=== PATIENT | male | born 1970 | race Caucasian/White ===

== ENCOUNTER 2018-05-29 11:53 | Emergency (ER) | payer OTHER ==
--- NOTE | 2018-05-29 13:50 | EDM.PDOCBH ---
ED HPI GENERAL MEDICAL PROBLEM - General Chief Complaint: Drug or Alcohol Abuse Stated Complaint: MEDICAL CLEARANCE FOR KULWANT JOSEPH Time Seen by Provider: 05/29/18 12:50 Source of Information: Reports: Patient History Limitations: Reports: No Limitations - History of Present Illness INITIAL COMMENTS - FREE TEXT/NARRATIVE: pt arrived with a history of uncontrolled drinking since the 22 of May. He has a long history of etoh problems. He was doing well but this summer has been a problem. 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 He drank a pint of vodka this am. Duration: Day(s):, Getting Worse Location: Reports: Generalized Associated Symptoms: Reports: No Other Symptoms - Related Data Allergies Allergy/AdvReac Type Severity Reaction Status Date / Time No Known Allergies Allergy Verified 05/29/18 12:52 Home Meds: Home Meds PARoxetine [Paxil] 20 mg PO DAILY 05/29/18 [History] Past Medical History - Past Health History Medical/Surgical History: Denies Medical/Surgical History Psychiatric History: Reports: Anxiety, Depression Social & Family History - Tobacco Use Smoking Status *Q: Never Smoker - Alcohol Use Days Per Week of Alcohol Use: 7 Number of Drinks Per Day: 5 Total Drinks Per Week: 35 - Recreational Drug Use Recreational Drug Use: No ED ROS GENERAL - Review of Systems Review Of Systems: See Below Constitutional: Reports: No Symptoms HEENT: Reports: No Symptoms Respiratory: Reports: No Symptoms Cardiovascular: Reports: No Symptoms Endocrine: Reports: No Symptoms GI/Abdominal: Reports: No Symptoms : Reports: No Symptoms Musculoskeletal: Reports: No Symptoms Skin: Reports: No Symptoms Neurological: Reports: Other (pt was very shaking this am and he did drink at that time. ) ED EXAM, BEHAVIORAL HEALTH - Physical Exam Exam: See Below Text/Narrative:: pt arrived with increased shakiness and feeling like his etoh use is out of control. Exam Limited By: No Limitations General Appearance: Alert, Anxious, Mild Distress Ears: Normal TMs Nose: Normal Inspection Throat/Mouth: Normal Inspection Head: Atraumatic Neck: Normal Inspection Respiratory/Chest: No Respiratory Distress Cardiovascular: Regular Rate, Rhythm GI/Abdominal: Soft, Non-Tender (Male) Exam: Deferred Rectal (Males) Exam: Deferred Back Exam: Normal Inspection Extremities: Normal Inspection Neurological: Alert, Normal Cognition COURSE, BEHAVIORAL HEALTH COMP - Course Vital Signs: Last Vital Signs Temp 36 C 05/29/18 12:45 Pulse 99 05/29/18 12:45 Resp 14 05/29/18 12:45 BP 144/101 H 05/29/18 12:45 Pulse Ox 94 L 05/29/18 12:45 Orders, Labs, Meds: Active Orders 24 hr Category Date Time Status DRUG SCREEN, URINE [URCHEM] Stat Lab 05/29/18 12:46 Ordered UA W/MICROSCOPIC [URIN] Urgent Lab 05/29/18 12:46 Ordered Laboratory Tests 05/29/18 05/29/18 05/29/18 Range/Units 12:46 13:04 13:04 WBC 7.5 (4.5-11.0) K/uL RBC 4.64 (4.30-5.90) M/uL Hgb 14.6 (12.0-15.0) g/dL Hct 42.2 (40.0-54.0) % MCV 91 (80-98) fL MCH 32 H (27-31) pg MCHC 35 (32-36) % Plt Count 191 (150-400) K/uL Neut % (Auto) 82 H (36-66) % Lymph % (Auto) 9 L (24-44) % [place] % (Auto) 9 H (2-6) % Eos % (Auto) 0 L (2-4) % Baso % (Auto) 0 (0-1) % Sodium 138 L (140-148) mmol/L Potassium 3.4 L (3.6-5.2) mmol/L Chloride 101 (100-108) mmol/L Carbon Dioxide 25 (21-32) mmol/L Anion Gap 15.4 H (5.0-14.0) mmol/L BUN 12 (7-18) mg/dL Creatinine 1.1 (0.8-1.3) mg/dL Est Cr Clr Drug Dosing 92.10 mL/min Estimated GFR (MDRD) > 60 (>60) Glucose 108 H (74-106) mg/dL Calcium 8.2 L (8.5-10.1) mg/dL Total Bilirubin 0.7 (0.2-1.0) mg/dL AST 133 H (15-37) U/L ALT 113 H (12-78) U/L Alkaline Phosphatase 104 (46-116) U/L Total Protein 6.1 L (6.4-8.2) g/dL Albumin 3.0 L (3.4-5.0) g/dL Globulin 3.1 (2.3-3.5) g/dL Albumin/Globulin Ratio 1.0 L (1.2-2.2) Urine Opiates Screen Negative (NEGATIVE) Ur Oxycodone Screen Negative (NEGATIVE) Urine Methadone Screen Negative (NEGATIVE) Ur Propoxyphene Screen Negative (NEGATIVE) Ur Barbiturates Screen Negative (NEGATIVE) Ur Tricyclics Screen Negative (NEGATIVE) Ur Phencyclidine Scrn Negative (NEGATIVE) Ur Amphetamine Screen Negative (NEGATIVE) U Methamphetamines Scrn Negative (NEGATIVE) Urine MDMA Screen Negative (NEGATIVE) U Benzodiazepines Scrn Negative (NEGATIVE) U Cocaine Metab Screen Negative (NEGATIVE) U Marijuana (THC) Screen Negative (NEGATIVE) Ethyl Alcohol mg/dL 05/29/18 Range/Units 13:04 WBC (4.5-11.0) K/uL RBC (4.30-5.90) M/uL Hgb (12.0-15.0) g/dL Hct (40.0-54.0) % MCV (80-98) fL MCH (27-31) pg MCHC (32-36) % Plt Count (150-400) K/uL Neut % (Auto) (36-66) % Lymph % (Auto) (24-44) % [place] % (Auto) (2-6) % Eos % (Auto) (2-4) % Baso % (Auto) (0-1) % Sodium (140-148) mmol/L Potassium (3.6-5.2) mmol/L Chloride (100-108) mmol/L Carbon Dioxide (21-32) mmol/L Anion Gap (5.0-14.0) mmol/L BUN (7-18) mg/dL Creatinine (0.8-1.3) mg/dL Est Cr Clr Drug Dosing mL/min Estimated GFR (MDRD) (>60) Glucose (74-106) mg/dL Calcium (8.5-10.1) mg/dL Total Bilirubin (0.2-1.0) mg/dL AST (15-37) U/L ALT (12-78) U/L Alkaline Phosphatase (46-116) U/L Total Protein (6.4-8.2) g/dL Albumin (3.4-5.0) g/dL Globulin (2.3-3.5) g/dL Albumin/Globulin Ratio (1.2-2.2) Urine Opiates Screen (NEGATIVE) Ur Oxycodone Screen (NEGATIVE) Urine Methadone Screen (NEGATIVE) Ur Propoxyphene Screen (NEGATIVE) Ur Barbiturates Screen (NEGATIVE) Ur Tricyclics Screen (NEGATIVE) Ur Phencyclidine Scrn (NEGATIVE) Ur Amphetamine Screen (NEGATIVE) U Methamphetamines Scrn (NEGATIVE) Urine MDMA Screen (NEGATIVE) U Benzodiazepines Scrn (NEGATIVE) U Cocaine Metab Screen (NEGATIVE) U Marijuana (THC) Screen (NEGATIVE) Ethyl Alcohol 209 mg/dL Medical Clearance: 05/29/18 13:49 pt has a etoh level of .2. He has mild elvation in his liver enzymes. His drug screen is neg. Departure - Departure Time of Disposition: 13:50 Disposition: DC/Tfer to Psych Hosp/Unit 65 Condition: Fair Clinical Impression: ETOH abuse - Discharge Information Referrals: PCP,None [Primary Care Provider] - Care Plan Goals: transfer to [facility]. - My Orders Last 24 Hours: My Active Orders 05/29/18 12:46 DRUG SCREEN, URINE [URCHEM] Stat UA W/MICROSCOPIC [URIN] Urgent - Assessment/Plan Last 24 Hours: My Active Orders 05/29/18 12:46 DRUG SCREEN, URINE [URCHEM] Stat UA W/MICROSCOPIC [URIN] Urgent
[2018-05-29] MEDS ORDERED: LORazepam 1 MG Tab PO ONE (13:51)
== END 2018-05-29 16:15 ==
LOC: JP.ED 11:53
DX: F10.129 Alcohol abuse with intoxication, unspecified (principal); Y90.7 Blood alcohol level of 200-239 mg/100 ml
CPT/HCPCS: 36415; 80053; 80305; 81001; 85025; 99285; A9270; G0480

== ENCOUNTER 2019-05-06 12:33 | Emergency (ER) | payer OTHER ==
[2019-05-06] MEDS ORDERED: MVI, Adult with Vitamin K 10 ML, Thiamine 100 MG, Folic Acid 1 MG, Magnesium Sulfate 3 ... IV SCH ×5 (13:15)
--- NOTE | 2019-05-06 13:27 | EDM.PDOCBH ---
ED HPI GENERAL MEDICAL PROBLEM - General Chief Complaint: Drug or Alcohol Abuse Stated Complaint: FEELING DRUNK Time Seen by Provider: 05/06/19 13:00 Source of Information: Reports: Patient History Limitations: Reports: Altered Mental Status, Intoxication - History of Present Illness INITIAL COMMENTS - FREE TEXT/NARRATIVE: 48-year-old male very intoxicated arrives wanting his vitals checked. He says he "can't do this anymore". I think he wants to go to detox but is very intoxicated and just keeps saying he wants to be "okay". We sent him to detox one year ago. Onset: Unknown/Unsure Associated Symptoms: Reports: Other (Denies suicidal ideation). Denies: Headaches, Nausea/Vomiting - Related Data Allergies Allergy/AdvReac Type Severity Reaction Status Date / Time No Known Allergies Allergy Verified 05/29/18 12:52 Home Meds: Home Meds . [Unable to Verify Home Med List] 05/06/19 [History] Past Medical History - Past Health History Medical/Surgical History: Denies Medical/Surgical History Psychiatric History: Reports: Addiction, Anxiety, Depression Social & Family History - Tobacco Use Smoking Status *Q: Never Smoker - Recreational Drug Use Recreational Drug Use: No ED ROS GENERAL - Review of Systems Review Of Systems: See Below Constitutional: Denies: Fever, Chills Respiratory: Denies: Shortness of Breath GI/Abdominal: Denies: Nausea, Vomiting Skin: Denies: Bruising ED EXAM, BEHAVIORAL HEALTH - Physical Exam Exam: See Below Exam Limited By: Intoxication General Appearance: Alert, Other (Ambulating, I believe he drove to the emergency room) Eye Exam: Bilateral Eye: EOMI (No jaundice) Respiratory/Chest: No Respiratory Distress Cardiovascular: Regular Rate, Rhythm Extremities: Normal Inspection. No: Pedal Edema Neurological: Opens Eyes to Commands, Slow Response to Commands Psychiatric: Depressed Mood, Flat Affect, Other (Very intoxicated) COURSE, BEHAVIORAL HEALTH COMP - Course Vital Signs: Last Vital Signs Temp 96.3 F 05/06/19 12:58 Pulse 64 05/06/19 12:58 Resp 18 05/06/19 12:58 BP 129/87 05/06/19 12:58 Pulse Ox 93 L 05/06/19 12:58 Orders, Labs, Meds: Laboratory Tests 05/06/19 05/06/19 05/06/19 Range/Units 13:11 13:11 13:11 WBC 4.1 L (4.5-11.0) K/uL RBC 5.04 (4.30-5.90) M/uL Hgb 14.8 (12.0-15.0) g/dL Hct 44.2 (40.0-54.0) % MCV 88 (80-98) fL MCH 29 (27-31) pg MCHC 34 (32-36) % Plt Count 198 (150-400) K/uL Neut % (Auto) 53 (36-66) % Lymph % (Auto) 38 (24-44) % [place] % (Auto) 7 H (2-6) % Eos % (Auto) 2 (2-4) % Baso % (Auto) 0 (0-1) % Sodium 143 (140-148) mmol/L Potassium 4.1 (3.6-5.2) mmol/L Chloride 103 (100-108) mmol/L Carbon Dioxide 29 (21-32) mmol/L Anion Gap 11.0 (5.0-14.0) mmol/L BUN 12 (7-18) mg/dL Creatinine 0.8 (0.8-1.3) mg/dL Est Cr Clr Drug Dosing 125.29 mL/min Estimated GFR (MDRD) > 60 (>60) Glucose 108 H (74-106) mg/dL Calcium 8.6 (8.5-10.1) mg/dL Urine Opiates Screen (NEGATIVE) Ur Oxycodone Screen (NEGATIVE) Urine Methadone Screen (NEGATIVE) Ur Propoxyphene Screen (NEGATIVE) Ur Barbiturates Screen (NEGATIVE) Ur Tricyclics Screen (NEGATIVE) Ur Phencyclidine Scrn (NEGATIVE) Ur Amphetamine Screen (NEGATIVE) U Methamphetamines Scrn (NEGATIVE) Urine MDMA Screen (NEGATIVE) U Benzodiazepines Scrn (NEGATIVE) U Cocaine Metab Screen (NEGATIVE) U Marijuana (THC) Screen (NEGATIVE) Ethyl Alcohol 462 mg/dL 05/06/19 05/06/19 Range/Units 14:44 15:44 WBC (4.5-11.0) K/uL RBC (4.30-5.90) M/uL Hgb (12.0-15.0) g/dL Hct (40.0-54.0) % MCV (80-98) fL MCH (27-31) pg MCHC (32-36) % Plt Count (150-400) K/uL Neut % (Auto) (36-66) % Lymph % (Auto) (24-44) % [place] % (Auto) (2-6) % Eos % (Auto) (2-4) % Baso % (Auto) (0-1) % Sodium (140-148) mmol/L Potassium (3.6-5.2) mmol/L Chloride (100-108) mmol/L Carbon Dioxide (21-32) mmol/L Anion Gap (5.0-14.0) mmol/L BUN (7-18) mg/dL Creatinine (0.8-1.3) mg/dL Est Cr Clr Drug Dosing mL/min Estimated GFR (MDRD) (>60) Glucose (74-106) mg/dL Calcium (8.5-10.1) mg/dL Urine Opiates Screen Negative (NEGATIVE) Ur Oxycodone Screen Negative (NEGATIVE) Urine Methadone Screen Negative (NEGATIVE) Ur Propoxyphene Screen Negative (NEGATIVE) Ur Barbiturates Screen Negative (NEGATIVE) Ur Tricyclics Screen Negative (NEGATIVE) Ur Phencyclidine Scrn Negative (NEGATIVE) Ur Amphetamine Screen Negative (NEGATIVE) U Methamphetamines Scrn Negative (NEGATIVE) Urine MDMA Screen Negative (NEGATIVE) U Benzodiazepines Scrn Negative (NEGATIVE) U Cocaine Metab Screen Negative (NEGATIVE) U Marijuana (THC) Screen Negative (NEGATIVE) Ethyl Alcohol 393 mg/dL Medications Discontinued Medications Generic Name Dose Route Start Last Admin Trade Name Freq PRN Reason Stop Dose Admin Multivitamins/Minerals 10 ml/ 1,017.2 mls @ 1,000 mls/hr 05/06/19 13:15 Thiamine HCl 100 mg/ Folic IV Acid 1 mg/ Magnesium Sulfate 3 ASDIRECTED JOAQUIN gm/ Sodium Chloride Multivitamins/Minerals 10 ml/ 1,017.2 mls @ 1,000 mls/hr 05/06/19 13:30 05/06 13:38 Thiamine HCl 100 mg/ Folic IV 05/06/19 14:31 1,000 mls/hr Acid 1 mg/ Magnesium Sulfate 3 ONETIME ONE Administration gm/ Sodium Chloride Re-Assessment/Re-Exam: CBC BMP and EtOH were obtained and a banana bag was started IV. CBC and BMP were reassuring but EtOH was 0.462. EtOH will be rechecked in 2 hours after his banana bag is done. Recheck of EtOH was 0.393, patient was much more alert and ambulating and asked for something to eat. Urine drug screen was needed to get to detox which was done and negative. Patient is stable for detox. Departure - Departure Time of Disposition: 16:04 Disposition: DC/Tfer to Other 70 Clinical Impression: ETOH abuse - Discharge Information Instructions: Alcohol Use Disorder Referrals: PCP,None [Primary Care Provider] - Forms: ED Department Discharge Care Plan Goals: Patient will be transferred to [place] for detox and hopefully long-term alcohol treatment.
[2019-05-06] MEDS ORDERED: MVI, Adult with Vitamin K 10 ML, Thiamine 100 MG, Folic Acid 1 MG, Magnesium Sulfate 3 ... IV ONE ×5 (13:30)
== END 2019-05-06 16:19 | disposition other institution (70) ==
LOC: JP.ED 12:33
DX: F10.129 Alcohol abuse with intoxication, unspecified (principal); Y90.8 Blood alcohol level of 240 mg/100 ml or more; F19.20 Other psychoactive substance dependence, uncomplicated
CPT/HCPCS: 36415; 80048; 80305; 85025; 96365; 99284; G0480; J3411; J3475; J7030; J3490